=== PATIENT | female | born 2000 | race African-American/Black ===

== ENCOUNTER 2024-10-27 06:14 | Day surgery (SDC) | payer OTHER ==
[2024-10-21 14:25] VITALS: BMI 22.3
[2024-10-27] MEDS ORDERED: ONDANSETRON 4 MG/2 ML VIAL ONE ×2 (06:57→10:48)
[2024-10-27] MEDS ORDERED: DEXAMETHASONE SOD PHOSPHATE 4 MG/1 ML VIAL ONE (06:57)
[2024-10-27] MEDS ORDERED: ACETAMINOPHEN INJECTION 100 ML ONE (06:57)
[2024-10-27] MEDS ORDERED: KETOROLAC TROMETHAMINE 30 MG/1 ML VIAL ONE (06:57)
[2024-10-27] MEDS ORDERED: MIDAZOLAM HCL 2 MG/2 ML SINGLE DOSE VIAL ONE (06:58)
[2024-10-27] MEDS ORDERED: PROPOFOL 80 ML ONE (06:58)
[2024-10-27] MEDS ORDERED: BUPIVACAINE HCL/EPINEPHRINE/PF 30 ML VIAL IJ ONE (07:11)
[2024-10-27] MEDS ORDERED: DEXAMETHASONE SOD PHOSPHATE 10 MG/1 ML VIAL ONE (07:19)
[2024-10-27] MEDS ORDERED: ROPIVACAINE HCL/PF 100 MG/20 ML VIAL ONE (07:19)
[2024-10-27] MEDS ORDERED: DEXMEDETOMIDINE HCL 200 MCG/2 ML IVPB ONE (07:19)
[2024-10-27] MEDS ORDERED: VANCOMYCIN 1,000 MG VIAL (RESTRICTED TO ID ONLY) ONE ×2 (07:23→08:53)
[2024-10-27] MEDS ORDERED: FENTANYL CITRATE/PF 50 MCG/ML VIAL ONE (10:49)
[2024-10-27] MEDS: ONDANSETRON 4 MG/2 ML VIAL IVPUSH PRN (10:50)
[2024-10-27] MEDS ORDERED: LACTATED RINGERS SOLUTION 1,000 ML IV SCH (11:30)
[2024-10-27 11:40] VITALS: RESP 16
[2024-10-27 11:49] VITALS: TEMP 97.7
[2024-10-27 13:08] VITALS: BP 100/56; PULSE 78
== END 2024-10-27 13:05 | disposition home or self-care (01) ==
LOC: FASU 06:14 → EDSEX 07:30 → FASU 13:05
PROVIDERS: ATTEND Orthopaedic Surgery
PROC: 0QSH04Z Reposition Left Tibia with Internal Fixation Device, Open Approach (ICD-10-PCS; principal; 2024-10-27 08:09)
PROC: 0MNP4ZZ Release Left Knee Bursa and Ligament, Percutaneous Endoscopic Approach (ICD-10-PCS; 2024-10-27 08:09)
DX: S83.005A Unspecified dislocation of left patella, initial encounter (principal); M22.02 Recurrent dislocation of patella, left knee; M23.52 Chronic instability of knee, left knee; X58.XXXA Exposure to other specified factors, initial encounter; Y92.9 Unspecified place or not applicable; Y93.9 Activity, unspecified
CPT/HCPCS: 27418; 27422; 29873; C1713; 73560-TC-LT-FY; 94760; J1100